=== PATIENT | female | born 2000 | race Caucasian/White ===

== ENCOUNTER 2020-11-27 11:00 | Emergency (ER) | payer OTHER, SELFPAY ==
[2020-11-27 11:05] VITALS: BP 127/72; PULSE 98; RESP 18; TEMP 36.8; O2SAT 98; BMI 20.3
--- NOTE | 2020-11-27 12:22 | DI.RAD.S_ITS ---
PROCEDURE: XR ELBOW LT MIN 3V INDICATIONS: pain sp foosh TECHNIQUE: 3 views of the elbow were acquired. COMPARISON: None. FINDINGS: Bones: No fractures or dislocations. No suspicious bony lesions. Soft tissues: No elbow joint effusion. No suspicious soft tissue calcifications. IMPRESSION: No fracture. No osseous lesion. If symptoms and/or clinical suspicion for pathology persists, further assessment with repeat radiographs (7-10 days) or advanced imaging (e.g. CT, MRI or bone scan) should be considered. Dictated by: Kaylee Fajardo MD, PhD on 11/27/2020 at 12:36 Approved by: Kaylee Fajardo MD, PhD on 11/27/2020 at 12:37
[2020-11-27] MEDS: KETOROLAC 60 MG/2 ML VIAL 30 MG IM (13:28)
--- NOTE | 2020-11-27 13:55 | ED_ITS ---
HPI - Extremity Injury (Upper) <EDDIE Bruner - Last Filed: 11/27/20 14:59> General Chief Complaint: Extremity Injury, Upper Stated Complaint: fell on outstretched left arm 11/24 Time Seen by Provider: 11/27/20 12:04 Source: patient Mode of arrival: Ambulatory Limitations: no limitations History of Present Illness HPI narrative: The patient is a 20-year-old female nonsmoker, right-hand dominant who presents with a chief complaint of a fall onto an outstretched left hand on Thursday. She was up in the snow at [facility] when she tripped and fell. She has taken occasional ibuprofen for the pain, but nothing consistently and nothing so far today. She states that her primary pain is around her left elbow. She states that she was unable to fully flex and extend for several d ays, then felt a pop yesterday and then her range of motion return. Denies any other injuries from her fall. Related Data Previous Rx's Medication Instructions Recorded ketorolac 10 mg PO TID PRN #14 tab 11/27/20 Allergies Allergy/AdvReac Type Severity Reaction Status Date / Time amoxicillin Allergy Mild Hives Verified 11/27/20 11:07 Review of Systems <PHONG Bruner - Last Filed: 11/27/20 14:59> Review of Systems Narrative: GENERAL: Denies chills, fatigue, malaise, fever, sweats. HEENT: Denies sinus pain, ear pain, sore throat, difficulty swallowing, dizziness. RESPIRATORY: Denies dyspnea, cough, wheezing, hemoptysis, sputum. CARDIOVASCULAR: Denies chest pain, palpitations, orthopnea, edema, GASTROINTESTINAL: Denies nausea, vomiting, abdominal pain, diarrhea, constipation, melena. : Denies dysuria, frequency, incontinence, hematuria, urinary retention. MUSCULOSKELETAL: See HPI SKIN: Denies rash, skin lesions, or other NEUROLOGIC: Denies weakness, headache, numbness, change in speech, confusion, seizures, incoordination. PSYCHIATRIC: No concerning psychosocial issues. 12 point review of systems is negative except for those stated above Patient History <PHONG Bruner - Last Filed: 11/27/20 14:59> Social History Smoking Status: Never smoker Smoking Status: Never smoker alcohol intake frequency: a few times a month Substance Use Type: does not use Exam <TANESHA Bruner-BC - Last Filed: 11/27/20 14:59> Narrative Exam Narrative: GENERAL: This is a well-nourished, well-developed patient, in no acute distress. HEAD: Atraumatic. Normocephalic. No temporal or scalp tenderness. EYES: Pupils equal round and reactive. Extraocular motions intact. No scleral icterus. No injection or drainage. ENT: Nose without bleeding, purulent drainage or septal hematoma. Wearing a mask. Airway patent. NECK: Trachea midline. No JVD or lymphadenopathy. Supple, nontender, no meningeal signs. CARDIOVASCULAR: Regular rate and rhythm RESPIRATORY: No cough. No increased respiratory effort. No accessory muscle use. EXTREMITIES: Diffuse tenderness to palpation of left elbow, able to fully flex and extend left elbow, pronate supinate left forearm, positive left radial pulse, no pain to palpation of snuffbox left wrist. Full range of motion noted left shoulder. NEURO: AOx3. SKIN: No rash or erythema on visible skin Initial Vital Signs Initial Vital Signs: Vital Signs Temperature 98.3 F 11/27/20 11:05 Pulse Rate 98 H 11/27/20 11:05 Respiratory Rate 18 11/27/20 11:05 Blood Pressure 127/72 11/27/20 11:05 Pulse Oximetry 98 11/27/20 11:05 <Lorri Shoemaker DO - Last Filed: 11/27/20 18:55> Initial Vital Signs Initial Vital Signs: Vital Signs Temperature 98.3 F 11/27/20 11:05 Pulse Rate 98 H 11/27/20 11:05 Respiratory Rate 18 11/27/20 11:05 Blood Pressure 127/72 11/27/20 11:05 Pulse Oximetry 98 11/27/20 11:05 Course <TANESHA Bruner-BC - Last Filed: 11/27/20 14:59> Orders Ordered: ED Orders 11/27/20 12:22 XR elbow LT min 3V Stat Discontinued Medications Ketorolac Tromethamine (Ketorolac 60 Mg/2 Ml Vial) 30 mg IM NOW ONE Stop: 11/27/20 13:16 Last Admin: 11/27/20 13:28 Dose: 30 mg Documented by: [facility] Vital Signs Vital signs: Vital Signs - 8 hr 11/27/20 11:05 11/27/20 14:01 Temperature 98.3 F Pulse Rate 98 H 80 Respiratory Rate 18 Blood Pressure 127/72 98/61 Pulse Oximetry 98 100 <Lorri Shoemaker DO - Last Filed: 11/27/20 18:55> Orders Ordered: ED Orders 11/27/20 12:22 XR elbow LT min 3V Stat Discontinued Medications Ketorolac Tromethamine (Ketorolac 60 Mg/2 Ml Vial) 30 mg IM NOW ONE Stop: 11/27/20 13:16 Last Admin: 11/27/20 13:28 Dose: 30 mg Documented by: [facility] Vital Signs Vital signs: Vital Signs - 8 hr 11/27/20 11:05 11/27/20 14:01 Temperature 98.3 F Pulse Rate 98 H 80 Respiratory Rate 18 Blood Pressure 127/72 98/61 Pulse Oximetry 98 100 MDM - Extremity Injury (Upper) <EDDIE Bruner - Last Filed: 11/27/20 14:59> Imaging Data Extremity x-ray #1: Radiologist's Impression: [address] [place] [id number] ReportSigned Patient: Tamara Tamayo IMR#: [id number]: 2000Acct:[id number]/Sex: 20 / FDate of Service: 11/27/20Loc: EDAccession Number: [id number] Procedure: XR elbow LT min 3V Ordering Provider: Yesy Saha PROCEDURE: XR ELBOW LT MIN 3V INDICATIONS: pain sp foosh TECHNIQUE: 3 views of the elbow were acquired. COMPARISON: None. FINDINGS: Bones: No fractures or dislocations. No suspicious bony lesions. Soft tissues: No elbow joint effusion. No suspicious soft tissue calcifications. IMPRESSION: No fracture. No osseous lesion. If symptoms and/or clinical suspicion for pathology persists, further assessment with repeat radiographs (7-10 days) or advanced imaging (e.g. CT, MRI or bone scan) should be considered. Dictated by: Kaylee Fajardo MD, PhD on 11/27/2020 at 12:36 Approved by: Kaylee Fajardo MD, PhD on 11/27/2020 at 12:37 [facility] Narrative Medical decision making narrative: The patient is a 20-year-old female who presents with a chief complaint of left elbow pain after a FOOSH injury on Thursday. She is neurovascularly intact throughout her stay, with reassuring range of motion. Discussed trial of conservative measures, possibility that x- ray does not rule out soft tissue injury, elected to do a trial of ketorolac. Discussed not taking that with ibuprofen, encouraged follow-up with primary care provider in the next few days discussed coming back to ER for acute concerns. Patient has no questions or concerns upon discharge states understanding of return precautions as well as follow-up care. Discharge Plan Departure Patient Disposition: Home Clinical Impression: Elbow pain, left Instructions: DI for Elbow Sprain, DI for Elbow Pain Activity Restrictions/Additional Instructions: As I discussed, your x-ray shows no acute fracture. This does not rule out a soft tissue injury such as a ligament or tendon injury. It is important that you follow up with primary care provider, especially if worsening or no improvement. There can be fractures that did not show up on initial x-ray. I have given you a prescription of Toradol. This is an NSAID. Do not combine it with other NSAIDs such as Aleve or ibuprofen. I suggest taking it with some food, as it can irritate your stomach. I sent this prescription to the [facility] pharmacy. Please come back to the emergency department for any acute concerns. Prescriptions: New ketorolac 10 mg tablet 10 mg PO TID PRN (Reason: pain) Qty: 14 RF: 0 Referrals: [facility] [Provider Group] Stand Alone Forms: Work Release Note <Lorri Shoemaker DO - Last Filed: 11/27/20 18:55> Cosign ED Attending Haileyature Attestation: I was immediately available in the department for consultation. Documentation has been reviewed. I agree with assessment and plan.
[2020-11-27 14:01] VITALS: BP 98/61; PULSE 80; O2SAT 100
== END 2020-11-27 13:56 | disposition home or self-care (01) ==
PROVIDERS: Emergency Provider Nurse Practitioner Family
DX: M25.522 Pain in left elbow (principal); W01.0XXA Fall on same level from slipping, tripping and stumbling without subsequent striking against object, initial encounter
CPT/HCPCS: 73080; 96372; 99283; J1885